=== PATIENT | male | born 1955 | race Caucasian/White ===

== ENCOUNTER 2020-08-29 22:16 | Observation (INO) ==
[2020-08-30] MEDS ORDERED: PANTOPRAZOLE 40 MG VIAL IV STA (00:46)
[2020-08-30] MEDS ORDERED: SODIUM CHLORIDE 0.9% 1,000 ML IV STA ×2 (00:46→00:47)
[2020-08-30] MEDS ORDERED: ONDANSETRON 4 MG/2 ML VIAL IV STA (00:46)
[2020-08-30 01:14] LABS: Basophils % 0.4 % (0.0-0.8); Eosinophils % 0.1 % (0.00-10.9); Hematocrit 47.5 VOL% (42.0-52.0); Hemoglobin 16.4 GM/DL (14.0-18.0); Immature Granulocytes % 0.4 %; Immature Granulocytes Absolute 0.04 #; Lymphocytes # 0.3 10*3/uL (1.4-4.0); Lymphocytes % 3.1 % (21.2-54.2); Mean Corpuscular HGB Conc 34.5 GM/DL (32-36); Mean Corpuscular Volume 93.7 FL (87-102); Mean Platelet Volume 11.4 FL (9.6-12.0); Monocytes % 2.6 % (1.7-12.7); Neutrophils % 93.4 % (38.7-73.9); Platelet Count 179 T/CUMM (130-400); Red Blood Count 5.07 MC/CUMM (3.8-5.5); Red Cell Distribution Width 13.4 % (9.3-17.3); White Blood Count 10.7 T/CUMM (4-12)
[2020-08-30 01:24] LABS: Albumin 3.9 G/DL (3.4-5.0); Calcium 8.9 MG/DL (8.5-10.1); Osmolality,Calculated 280.7 MOS/KG (273-304); Total Protein 8.1 G/DL (6.4-8.3)
[2020-08-30] MEDS ORDERED: DEXTROSE 50% 25 GM/50 ML VIAL IV PRN (02:50)
[2020-08-30] MEDS ORDERED: ONDANSETRON 4 MG/2 ML VIAL IV PRN (02:50)
[2020-08-30] MEDS ORDERED: GLUCAGON 1 MG VIAL IM PRN (02:50)
[2020-08-30 03:25] LABS: Band Neutrophils 3 % (0-10); Lymphocytes 3 % (20-55); Platelet Estimate Normal; Segmented Neutrophils 94 % (50-85); Total Cells Counted 100
[2020-08-30 03:48] LABS: INR 1.1; PT Patient Result 11.6 SECS (9.8-11.9); Partial Thromboplastin Time 35.9 SECS (23.9-33.8)
[2020-08-30 05:26] LABS: Hematocrit 42.1 VOL% (42.0-52.0); Hemoglobin 14.5 GM/DL (14.0-18.0)
[2020-08-30] MEDS ORDERED: ATORVASTATIN 10 MG TABLET PO SCH (09:00)
[2020-08-30] MEDS ORDERED: carvediloL 12.5 MG TABLET PO SCH (09:00)
[2020-08-30] MEDS ORDERED: DIGOXIN 0.25 MG TABLET PO SCH (09:00)
[2020-08-30] MEDS ORDERED: allopurinoL 300 MG TABLET PO SCH (09:00)
[2020-08-30] MEDS ORDERED: PANTOPRAZOLE 40 MG VIAL IV SCH (09:00)
[2020-08-30 11:50] VITALS: BP 107/41
[2020-08-30 12:08] LABS: Hematocrit 41.8 VOL% (42.0-52.0); Hemoglobin 13.9 GM/DL (14.0-18.0)
== END 2020-08-30 15:18 | disposition home or self-care (01) ==
LOC: N.ED 22:16 → N.EDINP 22:16 → N.TELEN 08-30 03:56
PROVIDERS: ADMIT Internal Medicine Geriatric Medicine; ATTEND Internal Medicine Geriatric Medicine